=== PATIENT | male | born 1980 | race Caucasian/White ===

== ENCOUNTER 2019-11-02 06:48 | Emergency (ER) | payer OTHER ==
[~2019-11-02] VITALS: Ht 188 cm; Wt 98.1 kg
[2019-11-02] MEDS ORDERED: AMPH20TA2 PO (07:07)
[2019-11-02] MEDS ORDERED: ONDANSETRON 2MG/ML, 2ML ONE (07:12)
[2019-11-02] MEDS ORDERED: MORPHINE SULFATE 4 MG/ML, 1ML ONE ×2 (07:12→08:33)
[2019-11-02] MEDS: MORPHINE SULFATE 4 MG/ML, 1ML IVPush PRN ×2 (07:23→08:35)
--- NOTE | 2019-11-02 07:28 | NUR ---
PT TO ED FOR LLQ ABD PAIN AND LEFT HAND/LEFT FOOT NUMBNESS STARTING THIS AM AT 0530. PT REPORTS HE WOKE UP WITH ABD PAIN, ATTEMPTED TO USE THE RR AND LEFT HAND AND FOOT WENT NUMB. PT ALSO STATES PAIN IN LEFT FLANK. PT CONNECTED TO ALL MONITORS. VSS. URSULA ANDREI TO BS FOR ASSESSMENT. ORDERS RECEIVED. PIV ESTABLISHED AND LABS DRAWN. IVF STARTED AND PT MEDICATED PER SEP. UA COLELCTED AND SENT. AWAITING CT.
[2019-11-02] MEDS ORDERED: SODIUM CHLORIDE 0.9% 1,000ML IVBOLUS ONE (07:30)
[2019-11-02] MEDS ORDERED: ONDANSETRON 2MG/ML, 2ML IVPush ONE (07:30)
[2019-11-02 07:39] LABS: BASOPHILS # (AUTO) 0.03 x10^3/uL (0-0.1); BASOPHILS % (AUTO) 1 % (0-1); EOSINOPHILS # (AUTO) 0.12 x10^3/uL (0-0.4); EOSINOPHILS % (AUTO) 2 % (1-7); LYMPHOCYTES % (AUTO) 22 % (22-44); MD NO; MEAN CORPUSCULAR HGB CONC 34.1 g/dL (33.2-36.2); MEAN CORPUSCULAR VOLUME 96.6 fL (81-97); MEAN PLATELET VOLUME 7.6 fL (7.4-10.4); MONOCYTES # (AUTO) 0.37 x10^3/uL (0.2-0.8); MONOCYTES % (AUTO) 5 % (2-9); NEUTROPHILS # (AUTO) 4.92 x10^3/uL (1.8-6.8); NEUTROPHILS % (AUTO) 71 % (42-75); PLATELET COUNT 262 x10^3/uL (130-400); RED BLOOD COUNT 4.99 x10^6/uL (4.38-5.82); RED CELL DISTRIBUTION WIDTH 12.5 % (9.4-14.8)
[2019-11-02 07:47] LABS: ALANINE AMINOTRANSFERASE 40 U/L (12-78); ALBUMIN 4.1 g/dL (3.4-5.0); ANION GAP 8 mmol/L (5-15); CALCIUM 9.1 mg/dL (8.5-10.1); CHLORIDE 107 mmol/L (98-107); CREATININE 1.31 mg/dL (0.7-1.3)
[2019-11-02 07:49] LABS: ALKALINE PHOSPHATASE 53 U/L (45-117); BILIRUBIN,TOTAL 0.5 mg/dL (0.2-1.0); TOTAL PROTEIN 7.7 g/dL (6.4-8.2)
[2019-11-02 07:54] LABS: MICROSCOPIC INDICATED
[2019-11-02 08:03] LABS: CULTURE INDICATED? NO
--- NOTE | 2019-11-02 08:04 | NUR ---
PT TO CT.
--- NOTE | 2019-11-02 08:18 | NUR ---
pt back from ct.
[2019-11-02] MEDS ORDERED: OMNIPAQUE 350 MG/ML, 100ML BOTTLE ONE (08:27)
[2019-11-02 08:34] VITALS: BP 139/89
[2019-11-02] MEDS ORDERED: KETOROLAC 30 MG/1 ML ONE (08:38)
--- NOTE | 2019-11-02 08:43 | NUR ---
PT RESTING IN ROOM. VSS. PT REPORTS INCREASE IN PAIN IN LLQ ABD. PAIN MEDICATIONS ADMINISTERED. TORDOL ORDERED IM. AFTER DISCUSSION WTIH PROVIDER, TORDOL ADMIN IV PER VERBAL ORDER FROM URSULA FORBES. PT REPORTS DECREASE IN PAIN. NO OTHER NEEDS EXPRESSED. AWAITING HEAD CT RESULTS.
--- NOTE | 2019-11-02 08:45 | NUR ---
ALL RESULTS BACK AT THIS TIME. CHART UP FOR RECHECK.
[2019-11-02] MEDS ORDERED: KETOROLAC 30 MG/1 ML IM ONE (09:00)
== END 2019-11-02 09:39 | disposition home or self-care (01) ==
LOC: ED 07:39
DX: N13.2 Hydronephrosis with renal and ureteral calculous obstruction (principal)
CPT/HCPCS: 36415; 70450; 74177; 80053; 81001; 83690; 85025; 96372; 96374; 96375; 96376; 99285; J1885; J2270; J2405; J7030; Q9967